=== PATIENT | female | born 1965 | race Caucasian/White ===

== ENCOUNTER 2016-07-09 22:23 | Emergency (ER) | payer OTHER ==
[~2016-07-09] VITALS: Ht 175.3 cm; Wt 116.7 kg
[~2016-07-09 22:23] MED LIST: ATIVAN1 MG PO; CLOBETASOL PROP60 G1 TP; LYRICA75 MG PO; MOBIC7.5 MG PO; NALTREXONE HCL50 MG PO
[2016-07-09 23:41] LABS: HEMATOCRIT 42.7 % (36.0-46.0); MCH 27.6 PG (29.0-34.0); MCHC 32.1 G/DL (30.0-36.0); MCV 86.1 FL (83-99); MEAN PLAT.VOLUME 9.8 uM^3 (9.5-12.4); PLATELET COUNT 279 K/uL (156-360); RBC DIS.WIDTH-CV 14.6 % (11.8-14.6); RBC DIS.WIDTH-SD 45.6 % (39-53); RED BLOOD COUNT 4.96 M/uL (3.80-5.20); WHITE BLOOD COUNT 9.8 K/uL (4.1-10.2)
[2016-07-09 23:42] LABS: ADD MIUA? NO; BILIRUBIN NEGATIVE; BLOOD NEGATIVE; COLOR YELLOW ((YELLOW)); GLUCOSE (STRIP) NEGATIVE; KETONES NEGATIVE; LEUKOCYTES NEGATIVE; NITRITE NEGATIVE; PROTEIN (STRIP) NEGATIVE; SPECIFIC GRAVITY 1.017 (1.000-1.030); UCUL ADDED? NO; UROBILINOGEN 0.2 MG/DL (0.2-1.0)
[2016-07-09 23:54] LABS: CHLORIDE 109 mEq/L (99-109); POTASSIUM 3.9 mEq/L (3.7-5.4); SODIUM 140 mEq/L (136-147)
[2016-07-09 23:56] LABS: GLUCOSE 93 mg/dL (70-99)
[2016-07-09 23:57] LABS: ANION GAP 9 MEQ/L (2-14)
[2016-07-09 23:58] LABS: TOTAL BILIRUBIN 0.3 mg/dL (0.0-1.0)
[2016-07-09 23:59] LABS: ALKALINE PHOSPHATASE 70 IU/L (3-129)
[2016-07-10] LABS: GFR ESTIMATE (CALCULATED) > 59 mL/min/
[2016-07-10 00:01] LABS: UREA NITROGEN (BUN) 13 mg/dL (9-23)
[2016-07-10 00:03] LABS: LIPASE 146 U/L (1.0-51.0)
[2016-07-10 00:13] LABS: QUANTITATIVE HCG < 4.0 MIU/ML
[2016-07-10] MEDS ORDERED: FLAGYL500 MG PO (01:35)
[2016-07-10] MEDS ORDERED: BENTYL20 MG PO (01:35)
[2016-07-10] MEDS ORDERED: ZOFRAN ODT4 MG PO (01:35)
[2016-07-10] MEDS ORDERED: CIPRO500 MG PO (01:35)
[2016-07-10 01:40] VITALS: BP 104/65
[2016-07-10 01:57] LABS: C-REACTIVE PROTEIN 13.8 MG/L (0-10)
== END 2016-07-10 01:44 | disposition home or self-care (01) ==
LOC: EME 22:23
DX: R19.7 Diarrhea, unspecified (principal); R10.84 Generalized abdominal pain; R11.0 Nausea; R74.8 Abnormal levels of other serum enzymes; Z90.49 Acquired absence of other specified parts of digestive tract; F17.200 Nicotine dependence, unspecified, uncomplicated
CPT/HCPCS: 74177; 80053; 81003; 83690; 84702; 85027; 86140; 87493; 87506; 99281; 99284; J0500; J2405; J7030